=== PATIENT | male | born 1990 | race Two or more races ===

== ENCOUNTER 2021-03-17 15:06 | Inpatient (IN) | payer OTHER ==
[2021-03-17 20:16] VITALS: BMI 23.0
[2021-03-17] MEDS ORDERED: P-EPHED 60MG/TRIPROLIDI 2.5MG TABLET PO PRN (23:38)
[2021-03-17] MEDS ORDERED: MAG HYDROX/AL HYDROX/SIMETH 30 ML UNIT-DOSE CUP PO PRN (23:38)
[2021-03-17] MEDS ORDERED: MAGNESIUM CITRATE 300 ML BOTTLE PO PRN (23:38)
[2021-03-17] MEDS ORDERED: guaiFENesin 200 MG/10 ML 10 ML UNIT-DOSE CUPS PO PRN (23:38)
[2021-03-17] MEDS ORDERED: MAGNESIUM HYDROX 2400MG/30ML ORAL SUSPENSION 30 ML CUP PO PRN (23:38)
[2021-03-17] MEDS ORDERED: ACETAMINOPHEN 325 MG TABLET (FP) PO PRN (23:38)
[2021-03-17] MEDS ORDERED: IBUPROFEN 400 MG TABLET (FP) PO PRN (23:38)
[2021-03-17] MEDS ORDERED: LOPERAMIDE HCL 2 MG CAPSULE PO PRN (23:38)
[2021-03-18] MEDS: BACITRACIN 15 GM TUBE TOPICAL OINTMENT TP SCH ×2 (00:44→10:34)
[2021-03-18] MEDS: MELATONIN 5 MG TABLETS PO SCH ×2 (00:44→22:00)
[2021-03-18] MEDS ORDERED: PT OWN MED DRAWER 7, Y5N ONE (08:55)
[2021-03-18 09:11] LABS: BILIRUBIN,DIRECT 0.2 mg/dL (0.0-0.2)
[2021-03-18 09:13] LABS: BILIRUBIN,TOTAL 0.7 mg/dL (0.2-1); TOT PROT 6.1 g/dl (6.4-8.2)
[2021-03-18] MEDS: PRENATAL VITAMINS W/ FOLIC ACID TABLET (FP) PO SCH (10:19)
[2021-03-18 15:12] LABS: PH,URINE 8.5 (5.0-8.0); URINE APPEARANCE CLEAR; URINE BILIRUBIN NEGATIVE (NEGATIVE); URINE COLOR YELLOW; URINE GLUCOSE (UA) NEGATIVE (NEGATIVE); URINE KETONE NEGATIVE (NEGATIVE); URINE LEUK ESTERASE NEGATIVE (NEGATIVE); URINE NITRITE NEGATIVE (NEGATIVE); URINE PROTEIN NEGATIVE (NEGATIVE); URINE UROBILINOGEN 0.2 mg/dL (0.2-1.0)
[2021-03-18] MEDS: METHOCARBAMOL 500 MG TABLET PO PRN (16:53)
[2021-03-18] MEDS: BACITRACIN 0.9 GM PACKET TP SCH (22:00)
[2021-03-18] MEDS: THIAMINE HCL 100 MG TABLET (FP) PO SCH (22:00)
[2021-03-19] MEDS ORDERED: IBUPROFEN 600 MG TABLET (FP) PO PRN (09:46)
[2021-03-19] MEDS: METHOCARBAMOL 500 MG TABLET PO PRN ×2 (10:13→21:17)
[2021-03-19] MEDS: PRENATAL VITAMINS W/ FOLIC ACID TABLET (FP) PO SCH (10:13)
[2021-03-19] MEDS: BACITRACIN 0.9 GM PACKET TP SCH ×2 (10:13→21:17)
[2021-03-19] MEDS: LIDOCAINE 5% TOPICAL PATCH TP SCH (10:14)
[2021-03-19] MEDS: hydrOXYzine PAMOATE 25 MG CAPSULE (FP) PO PRN (21:17)
[2021-03-19] MEDS: THIAMINE HCL 100 MG TABLET (FP) PO SCH (21:17)
[2021-03-19] MEDS: MELATONIN 5 MG TABLETS PO SCH (21:17)
[2021-03-19] MEDS: LIDOCAINE PATCH REMOVAL MC SCH (21:19)
[2021-03-20] MEDS: METHOCARBAMOL 500 MG TABLET PO PRN (06:32)
[2021-03-20] MEDS: BACITRACIN 0.9 GM PACKET TP SCH ×2 (09:47→21:24)
[2021-03-20] MEDS: PRENATAL VITAMINS W/ FOLIC ACID TABLET (FP) PO SCH (09:47)
[2021-03-20] MEDS: LIDOCAINE 5% TOPICAL PATCH TP SCH (09:47)
[2021-03-20] MEDS: hydrOXYzine PAMOATE 25 MG CAPSULE (FP) PO PRN ×2 (10:36→19:41)
[2021-03-20] MEDS ORDERED: NICOTINE 10 MG CARTRIDGE (INHALER) IH PRN (12:11)
[2021-03-20] MEDS: THIAMINE HCL 100 MG TABLET (FP) PO SCH (21:23)
[2021-03-20] MEDS: LIDOCAINE PATCH REMOVAL MC SCH (21:24)
[2021-03-20] MEDS: MELATONIN 5 MG TABLETS PO SCH (21:24)
[2021-03-21] MEDS: METHOCARBAMOL 500 MG TABLET PO PRN (06:36)
[2021-03-21] MEDS: PRENATAL VITAMINS W/ FOLIC ACID TABLET (FP) PO SCH (09:13)
[2021-03-21] MEDS: BACITRACIN 0.9 GM PACKET TP SCH ×2 (09:13→23:37)
[2021-03-21] MEDS: LIDOCAINE 5% TOPICAL PATCH TP SCH (09:13)
[2021-03-21] MEDS: LIDOCAINE PATCH REMOVAL MC SCH (23:37)
[2021-03-21] MEDS: THIAMINE HCL 100 MG TABLET (FP) PO SCH (23:37)
[2021-03-21] MEDS: MELATONIN 5 MG TABLETS PO SCH (23:37)
[2021-03-21] MEDS: hydrOXYzine PAMOATE 25 MG CAPSULE (FP) PO PRN (23:45)
[2021-03-22] MEDS: METHOCARBAMOL 500 MG TABLET PO PRN ×2 (08:31→21:20)
[2021-03-22] MEDS: BACITRACIN 0.9 GM PACKET TP SCH ×2 (10:30→21:19)
[2021-03-22] MEDS: LIDOCAINE 5% TOPICAL PATCH TP SCH (10:30)
[2021-03-22] MEDS: PRENATAL VITAMINS W/ FOLIC ACID TABLET (FP) PO SCH (10:30)
[2021-03-22] MEDS: THIAMINE HCL 100 MG TABLET (FP) PO SCH (21:19)
[2021-03-22] MEDS: MELATONIN 5 MG TABLETS PO SCH (21:19)
[2021-03-22] MEDS: LIDOCAINE PATCH REMOVAL MC SCH (21:20)
[2021-03-23] MEDS ORDERED: SUVOREXANT 10 MG TABLET PO PRN (05:53)
[2021-03-23] MEDS: LIDOCAINE 5% TOPICAL PATCH TP SCH (10:09)
[2021-03-23] MEDS: PRENATAL VITAMINS W/ FOLIC ACID TABLET (FP) PO SCH (10:10)
[2021-03-23] MEDS: BACITRACIN 0.9 GM PACKET TP SCH ×2 (10:10→23:30)
[2021-03-23] MEDS: METHOCARBAMOL 500 MG TABLET PO PRN (10:11)
[2021-03-23] MEDS: LIDOCAINE PATCH REMOVAL MC SCH (23:32)
[2021-03-23] MEDS: THIAMINE HCL 100 MG TABLET (FP) PO SCH (23:32)
[2021-03-24] MEDS: LIDOCAINE 5% TOPICAL PATCH TP SCH (10:10)
[2021-03-24] MEDS: PRENATAL VITAMINS W/ FOLIC ACID TABLET (FP) PO SCH (10:10)
[2021-03-24] MEDS: BACITRACIN 0.9 GM PACKET TP SCH ×2 (10:10→21:06)
[2021-03-24] MEDS: METHOCARBAMOL 500 MG TABLET PO PRN (10:12)
[2021-03-24] MEDS: THIAMINE HCL 100 MG TABLET (FP) PO SCH (21:05)
[2021-03-24] MEDS: SUVOREXANT 15 MG TABLET PO PRN (21:07)
[2021-03-24] MEDS: LIDOCAINE PATCH REMOVAL MC SCH (21:08)
[2021-03-25] MEDS: PRENATAL VITAMINS W/ FOLIC ACID TABLET (FP) PO SCH (09:42)
[2021-03-25] MEDS: LIDOCAINE 5% TOPICAL PATCH TP SCH (09:43)
[2021-03-25] MEDS: BACITRACIN 0.9 GM PACKET TP SCH ×2 (09:43→22:06)
[2021-03-25] MEDS: SUVOREXANT 15 MG TABLET PO PRN (22:04)
[2021-03-25] MEDS: LIDOCAINE PATCH REMOVAL MC SCH (22:05)
[2021-03-25] MEDS: THIAMINE HCL 100 MG TABLET (FP) PO SCH (22:05)
[2021-03-26 06:59] VITALS: BP 128/74; PULSE 84; TEMP 98.3
[2021-03-26] MEDS ORDERED: MELATONIN 5 MG TABLETS PO PRN (07:41)
[2021-03-26] MEDS ORDERED: SUVOREXANT 20 MG TABLET PO PRN (07:53)
[2021-03-26] MEDS: LIDOCAINE 5% TOPICAL PATCH TP SCH (09:39)
[2021-03-26] MEDS: BACITRACIN 0.9 GM PACKET TP SCH (09:39)
[2021-03-26] MEDS: PRENATAL VITAMINS W/ FOLIC ACID TABLET (FP) PO SCH (09:40)
[2021-03-26] MEDS: METHOCARBAMOL 500 MG TABLET PO PRN (09:41)
[2021-03-26] MEDS: hydrOXYzine PAMOATE 25 MG CAPSULE (FP) PO PRN (09:41)
== END 2021-03-26 15:55 | disposition left against medical advice (07) | DRG 770 ==
LOC: YASAS 15:06 → Y3E 22:55
PROVIDERS: ADMIT Allergy & Immunology; ATTEND Allergy & Immunology
PROC: HZ42ZZZ Group Counseling for Substance Abuse Treatment, Cognitive-Behavioral (ICD-10-PCS; principal; 2021-03-17)
DX: F10.20 Alcohol dependence, uncomplicated (principal); F11.20 Opioid dependence, uncomplicated; F14.20 Cocaine dependence, uncomplicated; F17.210 Nicotine dependence, cigarettes, uncomplicated; F25.9 Schizoaffective disorder, unspecified; F31.9 Bipolar disorder, unspecified; F19.24 Other psychoactive substance dependence with psychoactive substance-induced mood disorder; Z59.0 Homelessness
CPT/HCPCS: 36415; 80076; 81003; 86780; C9803; U0003; U0005

== ENCOUNTER 2021-04-13 16:49 | Inpatient (IN) | payer OTHER ==
[2021-04-13 18:15] VITALS: BMI 25.0
[2021-04-13] MEDS ORDERED: ONDANSETRON *ODT* 4 MG TABLET SL PRN (21:29)
[2021-04-13] MEDS ORDERED: hydrOXYzine PAMOATE 25 MG CAPSULE (FP) PO PRN (21:29)
[2021-04-13] MEDS ORDERED: IBUPROFEN 400 MG TABLET (FP) PO PRN (21:29)
[2021-04-13] MEDS ORDERED: MENTHOL/PHENOL 1 EACH UD MM PRN (21:29)
[2021-04-13] MEDS ORDERED: BISMUTH SUBSALICYLATE 524 MG/30 ML PO PRN (21:29)
[2021-04-13] MEDS ORDERED: MAGNESIUM CITRATE 300 ML BOTTLE PO PRN (21:29)
[2021-04-13] MEDS ORDERED: MAG HYDROX/AL HYDROX/SIMETH 30 ML UNIT-DOSE CUP PO PRN (21:29)
[2021-04-13] MEDS ORDERED: MAGNESIUM HYDROX 2400MG/30ML ORAL SUSPENSION 30 ML CUP PO PRN (21:29)
[2021-04-13] MEDS ORDERED: METHOCARBAMOL 500 MG TABLET PO PRN (21:29)
[2021-04-13] MEDS ORDERED: ACETAMINOPHEN 325 MG TABLET (FP) PO PRN ×2 (21:29)
[2021-04-14] MEDS: THIAMINE HCL 100 MG TABLET (FP) PO SCH ×2 (00:24→22:19)
[2021-04-14] MEDS: BACITRACIN 0.9 GM PACKET TP SCH ×3 (06:26→22:19)
[2021-04-14] MEDS ORDERED: diazePAM 5 MG TABLET PO PRN (09:03)
[2021-04-14] MEDS ORDERED: methaDONE HCL 10 MG TABLET (FOR DETOX USE ONLY) PO ONE (09:03)
[2021-04-14] MEDS ORDERED: cloNIDine HCL 0.1 MG TABLET PO PRN (09:03)
[2021-04-14 10:14] LABS: BASO % 0.3 % (0-2.0); EOS % 1.2 % (0-4.5); HEMATOCRIT 41.4 % (35.4-49); HEMOGLOBIN 13.5 GM/dL (11.7-16.9); LYMPH % 19.9 % (8-40); MCH 29.1 pg (25.7-33.7); MCHC 32.5 g/dl (32.0-35.9); MEAN CELL VOLUME 89.5 fl (80-96); MEAN PLT VOLUME 7.7 fl (7.5-11.1); MONO % 9.1 % (3.8-10.2); NEUT % 69.5 % (42.8-82.8); PLATELET COUNT 273 10^3/uL (134-434); RBC 4.63 M/mm3 (4.00-5.60); RDW 12.8 % (11.9-15.9); WHITE BLOOD COUNT 6.2 K/mm3 (4.0-10.0)
[2021-04-14] MEDS ORDERED: diazePAM 5 MG TABLET ONE (11:09)
[2021-04-14] MEDS ORDERED: methaDONE HCL 10 MG TABLET (FOR DETOX USE ONLY) ONE (11:10)
[2021-04-14] MEDS: PRENATAL VITAMINS W/ FOLIC ACID TABLET (FP) PO SCH (11:16)
[2021-04-14] MEDS: diazePAM 5 MG TABLET PO SCH ×3 (11:16→22:19)
[2021-04-14 17:54] LABS: CALCIUM 8.2 mg/dL (8.5-10.1)
[2021-04-14 17:55] LABS: ALBUMIN 3.2 g/dl (3.4-5.0); BLOOD UREA NITROGEN 11.4 mg/dL (7-18)
[2021-04-14 18:00] LABS: BILIRUBIN,TOTAL 0.8 mg/dL (0.2-1); CREATININE 0.7 mg/dL (0.55-1.3); TOT PROT 6.6 g/dl (6.4-8.2)
[2021-04-15] MEDS: diazePAM 5 MG TABLET PO SCH ×4 (06:08→22:20)
[2021-04-15] MEDS ORDERED: methaDONE HCL 10 MG TABLET (FOR DETOX USE ONLY) ONE (08:40)
[2021-04-15] MEDS: PRENATAL VITAMINS W/ FOLIC ACID TABLET (FP) PO SCH (10:25)
[2021-04-15] MEDS: BACITRACIN 0.9 GM PACKET TP SCH ×2 (10:25→22:20)
[2021-04-15] MEDS: THIAMINE HCL 100 MG TABLET (FP) PO SCH (22:20)
[2021-04-16] MEDS: diazePAM 5 MG TABLET PO SCH ×3 (05:20→22:36)
[2021-04-16] MEDS ORDERED: methaDONE HCL 10 MG TABLET (FOR DETOX USE ONLY) PO ONE (10:00)
[2021-04-16] MEDS: PRENATAL VITAMINS W/ FOLIC ACID TABLET (FP) PO SCH (10:15)
[2021-04-16] MEDS: BACITRACIN 0.9 GM PACKET TP SCH ×2 (10:15→22:36)
[2021-04-16] MEDS: THIAMINE HCL 100 MG TABLET (FP) PO SCH (22:36)
[2021-04-16] MEDS: MELATONIN 5 MG TABLETS PO PRN (22:36)
[2021-04-17] MEDS: diazePAM 5 MG TABLET PO SCH ×2 (06:41→18:27)
[2021-04-17] MEDS ORDERED: methaDONE HCL 10 MG TABLET (FOR DETOX USE ONLY) ONE (09:11)
[2021-04-17] MEDS: PRENATAL VITAMINS W/ FOLIC ACID TABLET (FP) PO SCH (10:02)
[2021-04-17] MEDS: BACITRACIN 0.9 GM PACKET TP SCH ×2 (10:02→22:31)
[2021-04-17] MEDS: THIAMINE HCL 100 MG TABLET (FP) PO SCH (22:31)
[2021-04-18] MEDS ORDERED: diazePAM 5 MG TABLET PO ONE (06:00)
[2021-04-18] MEDS ORDERED: methaDONE HCL 10 MG TABLET (FOR DETOX USE ONLY) PO ONE (10:00)
[2021-04-18] MEDS: BACITRACIN 0.9 GM PACKET TP SCH ×2 (10:06→22:44)
[2021-04-18] MEDS: PRENATAL VITAMINS W/ FOLIC ACID TABLET (FP) PO SCH (10:06)
[2021-04-18] MEDS: MELATONIN 5 MG TABLETS PO PRN (22:44)
[2021-04-18] MEDS: THIAMINE HCL 100 MG TABLET (FP) PO SCH (22:44)
[2021-04-19 09:25] VITALS: BP 100/86; PULSE 93; TEMP 97.4
== END 2021-04-19 10:32 | disposition home or self-care (01) | DRG 773 ==
LOC: YASAS 16:49 → Y3N 04-14 12:36
PROVIDERS: ADMIT Allergy & Immunology; ATTEND Allergy & Immunology
PROC: HZ2ZZZZ Detoxification Services for Substance Abuse Treatment (ICD-10-PCS; principal; 2021-04-14)
DX: F11.220 Opioid dependence with intoxication, uncomplicated (principal); F10.230 Alcohol dependence with withdrawal, uncomplicated; F14.20 Cocaine dependence, uncomplicated; F17.210 Nicotine dependence, cigarettes, uncomplicated
CPT/HCPCS: 36415; 73562-TC-LT-FY; 73562-TC-RT-FY; 80053; 85025; 86780; C9803; U0003; U0005

== ENCOUNTER 2024-12-12 13:47 | Emergency (ER) | payer OTHER ==
[2024-12-12 13:53] VITALS: BP 122/70; PULSE 94; RESP 18; TEMP 98.5; BMI 25.5
== END 2024-12-12 15:05 | disposition home or self-care (01) ==
LOC: JERFT 13:47
PROC: 2W3CX1Z Immobilization of Right Lower Arm using Splint (ICD-10-PCS; principal; 2024-12-12)
DX: S62.231A Other displaced fracture of base of first metacarpal bone, right hand, initial encounter for closed fracture (principal); W01.0XXA Fall on same level from slipping, tripping and stumbling without subsequent striking against object, initial encounter
CPT/HCPCS: 73140-TC-RT-FY; 99283-25